=== PATIENT | male | born 1985 | race Caucasian/White ===

== ENCOUNTER 2018-01-06 21:27 | Emergency (ER) | payer SELFPAY ==
[~2018-01-06] VITALS: Ht 167.6 cm; Wt 107.0 kg
[2018-01-06] MEDS ORDERED: ONDANSETRON 4MG ODT PO ONE (21:45)
[2018-01-06] MEDS ORDERED: ONDANSETRON HCL 4MG/2ML VIAL IV ONE (22:15)
[2018-01-06 22:40] VITALS: BP 131/71
== END 2018-01-06 23:19 | disposition home or self-care (01) ==
LOC: ER 21:27
DX: T51.91XA Toxic effect of unspecified alcohol, accidental (unintentional), initial encounter (principal); T40.5X1A Poisoning by cocaine, accidental (unintentional), initial encounter; G93.40 Encephalopathy, unspecified; J45.909 Unspecified asthma, uncomplicated; Y92.89 Other specified places as the place of occurrence of the external cause
CPT/HCPCS: 93005; 96374; 99284; J2405; Q0162